=== PATIENT | female | born 1960 | race Caucasian/White ===

== ENCOUNTER 2021-08-19 10:31 | Outpatient (CLI) | payer OTHER ==
--- NOTE | 2021-08-19 16:55 | MRI Report ---
PROCEDURE: Shoulder LT W/O INDICATIONS: LEFT SHOULDER PAIN TECHNIQUE: Noncontrast oblique coronal T2 fast spin echo with fat saturation, oblique sagittal T1 spin echo and T2 fast spin echo with fat saturation, axial T1 spin echo and T2 fast spin echo with fat saturation t hrough the shoulder. COMPARISON: None. FINDINGS: Image quality: Excellent. Rotator cuff: Mild T2 signal elevation throughout the supraspinatus and anterior per spinatus tendons at the humeral insertion sites, indicating tendinopathy. Superimposed low-grade articular surface te aring of the anterior supraspinatus and mid super spinatus tendon at the humeral insertion site. Supe rimposed low-grade bursal surface tearing of the mid and posterior supraspinatus tendon at the keke l insertion site. Low-grade partial-thickness intrasubstance tearing of the anterior infraspinatus te ndon at the humeral insertion site. Subscapularis and teres minor tendons are intact. No rotator cuff atrophy. Bones and bursae: No bone marrow contusions or fractures. Mild acromioclavicular joint degeneration. The acromion demonstrates conventional anatomy, without an os acromiale. No pathologic subacromial /subdeltoid bursal fluid is present. Capsule and soft tissues: Diffuse degenerative fraying of the glenoid labrum. The long head of the bi ceps tendon demonstrates normal location and morphology. The rotator interval appears normal, withou t fibrosis. The coracohumeral ligament is normal in thickness. IMPRESSION: 1. 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 No full-thickness rotator cuff tear. 2. Acromioclavicular joint osteoarthritis. 3. Diffuse degenerative glenoid labral tearing. Reviewed by: Evaristo Juan MD on 08/19/2021 4:54 PM PST Approved by: Evaristo Juan MD on 08/19/2021 4:54 PM PST Station ID: [id number]
== END 2021-08-19 10:32 | disposition home or self-care (01) ==
LOC: DI 10:31
PROVIDERS: ATTEND Family Medicine
DX: M25.512 Pain in left shoulder (principal); M19.012 Primary osteoarthritis, left shoulder; M75.102 Unspecified rotator cuff tear or rupture of left shoulder, not specified as traumatic; S43.432A Superior glenoid labrum lesion of left shoulder, initial encounter